=== PATIENT | female | born 1945 | race Caucasian/White ===

== ENCOUNTER → 2018-07-19 | Outpatient (CLI) | payer OTHER, MEDICARE ==
[~2018-07-19] VITALS: Ht 162.6 cm; Wt 54.4 kg
[~2018-07-19] MED LIST: KLOR-CON 1010 MEQ PO; LISINOPRIL-HCT1 EAC1 PO; SIMVASTATIN40 MG PO; TYLENOL PM EX-1 EACH PO; XANAX 0.25 MG0.25 MG PO
--- NOTE | 2018-07-19 16:52 | P ---
[facility] [place] [address] PROCEDURE REPORT Name: ROSEMARIEFRNACIH Gabino Room #: REG [facility]#: [id number] Admission: 07/19/18 Attend Phys: Matt Barker MD Discharge: Date of : 45 Report #: [id number] THIS REPORT FOR: //name// CC: Dillon Barker BRIEF HISTORY: The patient is a 72-year-old woman with intermittent solid food dysphagia. She also has Globus symptoms intermittently. PREOPERATIVE DIAGNOSES: 1. Dysphagia. 2. Globus symptoms. POSTOPERATIVE DIAGNOSES: 1. Moderate diffuse gastritis. 2. Small hiatus hernia. 3. Dysphagia. MEDICATIONS: Deep sedation with propofol per anesthesia. SPECIMEN: Biopsies of gastritis. ESTIMATED BLOOD LOSS: 3 mL. PROCEDURE: EGD with biopsy and Landers dilation. FINDINGS: Prior to propofol sedation, procedure of upper endoscopy and dilation were discussed with the patient as well as potential risks and its complications. She indicates she understands and desires to proceed. DESCRIPTION OF PROCEDURE: With the patient in left lateral decubitus position, the Olympus video endoscope was inserted in cervical esophagus under direct vision without difficulty. Examination of this organ through its entire length revealed normal esophageal mucosa down to the squamocolumnar junction. No strictures or masses were seen. There was no endoscopic evidence of esophagitis. There was no Pritchett mucosa. Intermittently, a small 2 cm sliding-type hiatus hernia was seen. The mucosa in the hernia was unremarkable. Scope was advanced in the stomach, was examined on end view as well as retroflexed views. Examination of the stomach revealed a moderate diffuse gastritis, primarily in the antrum. No ulcers or erosions were seen. Upon retroflexion, no abnormalities were seen. No mass lesions were seen. The pylorus, duodenal bulb and postbulbar duodenal sweep were inspected and noted to be unremarkable. At that point, the scope was slowly withdrawn and careful circumferential views confirmed the above findings. The patient tolerated the procedure well. Biopsies obtained of the gastritis. [address] [address] PROCEDURE REPORT Name: GLORIA HOUSTON Room #: REG [facility]#: [id number] Admission: 07/19/18 Attend Phys: Matt Barker MD Discharge: Date of : 45 Report #: [id number] Due to her symptoms of dysphagia, she was dilated with passage of 50-Welsh Landers dilator, although a definite stricture or ring was not seen. CONDITION OF THE PATIENT UPON DISCHARGE: Following the procedure, she was drowsy and prepared for colonoscopy. INSTRUCTIONS TO THE PATIENT AND FAMILY AT THE TIME OF DISCHARGE: Symptoms may in part be related to reflux, so I do not see esophagitis. We will have her use omeprazole 20 mg daily as needed for her symptoms. If she has further dysphagia and has benefit from dilation today, she may return on an as needed basis for dilation. We will proceed with colonoscopy at this time. <ELECTRONICALLY SIGNED> By: Matt Barker MD 07/19/18 1652 [id number] 1033 Matt Barker MD /nt
--- NOTE | 2018-07-19 16:52 | P ---
[facility] [place] [address] PROCEDURE REPORT Name: HOUSTONGLORIA Room #: REG [facility]#: [id number] Admission: 07/19/18 Attend Phys: Matt Barker MD Discharge: Date of : 45 Report #: [id number] THIS REPORT FOR: //name// CC: Dillon Barker OUTPATIENT COLONOSCOPY REPORT BRIEF HISTORY: The patient is a 72-year-old woman with family history of colon cancer. Father had colon cancer at age 52, paternal aunts had colon cancer in their 80s and a paternal cousin had colon cancer at age 53. The patient herself has had precancerous cervical changes treated in the past. PREOPERATIVE DIAGNOSIS: Family history of colon cancer. POSTOPERATIVE DIAGNOSES: 1. Multiple colon polyps. 2. Moderate sigmoid diverticulosis coli. MEDICATIONS: Deep sedation with propofol per Anesthesia. SPECIMENS: 1. Colon polyp removed at 30 cm, but not able to retrieve. 2. Proximal transverse colon polyp. 3. Cecal polyp. 4. Hepatic flexure polyps x 2. 5. Polyp at 40 cm. ESTIMATED BLOOD LOSS: 3 mL. PROCEDURE: Colonoscopy to cecum and terminal ileum with snare polypectomy and biopsy. FINDINGS: Prior to propofol sedation, procedure of colonoscopy was discussed with the patient as well as potential risks and its complications. She indicates she understands and desires to proceed. DESCRIPTION OF PROCEDURE: With the patient in the left lateral decubitus position, digital examination was completed, which revealed no abnormalities. Subsequently, the Olympus video colonoscope was introduced in the rectum, advanced under direct vision to the cecum. Done with minimal difficulty. The cecum was identified by the ileocecal valve and the appendiceal orifice. I was able to visualize the distal segment of the terminal ileum, which was inspected and noted to be unremarkable. At that point, the scope was slowly withdrawn and careful circumferential views were obtained. Upon slow withdrawal of the scope, [facility] [address] [place] [address] PROCEDURE REPORT Name: GLORIA HOUSTON Room #: REG [facility].#: [id number] Admission: 07/19/18 Attend Phys: Matt Barker MD Discharge: Date of : 45 Report #: [id number] the prep was noted to be generally good. However, there were some areas that required some clean-up and overall a good prep was achieved throughout the colon. In the cecum, a 5 x 5 mm polyp was seen and removed by cold snare polypectomy. At the hepatic flexure, two sessile polyps were seen. They were in the range of 4-5 mm and removed by snare polypectomy and one of them in the site was cleaned up with biopsy forceps. In the proximal transverse colon, a diminutive polyp was seen and removed with biopsy forceps. The scope was further withdrawn and no additional abnormalities were noted until about 40 cm, at which point, a diminutive polyp was seen and removed by biopsy. At 30 cm, a 5 x 5 mm sessile polyp was seen and removed by cold snare polypectomy. Unfortunately, this polyp was lost and we were unable to recover it. It had the appearance of a benign adenoma. In addition, as we withdrew the scope through the colon, she was noted to have moderately severe diverticular disease of the sigmoid colon, without endoscopic evidence of diverticulitis. There were also noted to be a few scattered diverticula in the proximal colon. The scope was withdrawn in the rectum. Upon retroflexion, no abnormalities were seen. The scope was withdrawn. The patient tolerated the procedure well. CONDITION OF THE PATIENT UPON DISCHARGE: Following procedure, the patient drowsy, aroused, conversant and will be discharged home when fully ambulatory. INSTRUCTIONS TO THE PATIENT AND FAMILY AT THE TIME OF DISCHARGE: A total of 6 polyps were identified and removed today. We will follow up on the path. However, these appear to be adenomatous polyps. Given her family history and number of polyps, I suggest return in 3 years for followup colon exam. She will return to the care of Dr. Matt Bacon and return to see me as needed. Last colonoscopy was approximately 7-1/2 years ago. Withdrawal time from the cecum was 12 minutes and 48 seconds. <ELECTRONICALLY SIGNED> By: Matt Barker MD 07/19/18 1652 0904 1039 Matt Barker MD /nt
--- NOTE | 2018-07-22 15:06 | PATH ---
[facility] [address] [place] [address] PATHOLOGY RPT PROCEDURE Name: GLORIA KUMAR Gabino Room #: REG [facility].#: [id number] Admission: 07/19/18 Date of : 45 Discharge: Report #: [id number] Path Case #: [id number] [facility] Accession Number: [id number] . 01 Material submitted: . PART A: GASTRIC BIOPSY R/O H. PYLORI PART B: PROXIMAL TRANSVERSE COLON POLYP PART C: CECAL POLYP PART D: HEPATIC FLEXURE POLYP X 2 PART E: COLON POLYP AT 40 CM . 01 Clinical history: . Pre-OP DX: Family history of colon cancer, dysphagia Post-OP DX: Gastritis, hiatal hernia, colon polyps, diverticulosis . 02 Diagnosis: A. Gastric mucosa, gastric rule out H. pylori, endoscopic biopsy: - Mild reactive gastropathy. - Negative for intestinal metaplasia or atrophy. - Negative for Helicobacter pylori (properly controlled immunohistochemical stain performed). . B. Polyp, proximal transverse colon polyp, endoscopic biopsy: - Tubular adenoma. - Negative for high grade dysplasia. . C. Polyp, cecal polyp, endoscopic biopsy: - Tubular adenoma, inflamed. - Negative for high grade dysplasia. . D. Polyp x 2, hepatic flexure polyp, endoscopic biopsy: - All fragments showing tubular adenoma. - Negative for high grade dysplasia. . E. Polyp, at 40 cm, endoscopic biopsy: - Compatible with a hyperplastic polyp, superficial fragments. - Negative for dysplasia. (IUV/db; 07/22/18) LBQ/07/22/2018 . 02 Electronically signed: . Arely Butts MD, Pathologist NPI- [id number] . 01 Gross description: . A. Received in formalin labeled "Gloria Kumar, gastric biopsy, rule out H. pylori," are 4 segments of hawley soft tissue measuring 1.5 x 0[place]6 [place] [address] PATHOLOGY RPT PROCEDURE Name: GLORIA KUMAR A Room #: REG [facility]#: [id number] Admission: 07/19/18 Date of : 45 Discharge: Report #: [id number] Path Case #: [id number] 0.2 cm in aggregate dimensions and ranging from 0.4 to 0.5 cm in maximum dimension. The specimen is submitted entirely in cassette A1. . B. Received in formalin labeled "Gloria Kumar, proximal transverse colon polyp," are 3 segments of hawley soft tissue measuring 0.6 x 0.5 x 0.2 cm in aggregate dimensions and ranging from 0.2 to 0.3 cm in maximum dimension. The specimen is submitted entirely in cassette B1. . C. Received in formalin labeled "Gloria Kumar, cecal polyp," is a single segment of hawley soft tissue measuring 0.6 cm in maximum dimension. The specimen is entirely submitted in cassette C1. . D. Received in formalin labeled "Gloria Kumar, hepatic flexure polyp x2," are 3 segments of hawley soft tissue measuring 0.9 x 0.8 x 0.3 cm in aggregate dimensions and ranging from 0.3 to 0.5 cm in maximum dimension. The specimen is submitted entirely in cassette D1. . E. Received in formalin labeled "Gloria Kumar, colon polyp at 40 cm," are 3 minute segments of hawley soft tissue measuring 0.2 x 0.2 x 0.1 cm in aggregate dimensions and measuring less than 0.1 cm each in maximum dimension. The specimen is submitted entirely in cassette E1. Due to the minute nature of the specimen, it may not survive processing. (TSD; 07/19/2018) TOB/TOB . 02 Pathologist provided ICD-10: K31.9, D12.3, D12.0, K63.5 . 02 CPT . 126351, 260933, 827918, 062363, 740228, [id number] Specimen Comment: A courtesy copy of this report has been sent to Specimen Comment: [phone], , . Specimen Comment: Report sent to ,DR ROSE / DR PEOPLES Performed at: [address], [place], [place] [id number] MD Ayush Lovell MD Phone: [phone] Performed at: [address] [id number] MD Arely Butts MD Phone: [phone]
== END | disposition home or self-care (01) ==
LOC: GI 07:15
DX: Z12.11 Encounter for screening for malignant neoplasm of colon (principal); Z80.0 Family history of malignant neoplasm of digestive organs; D12.0 Benign neoplasm of cecum; D12.3 Benign neoplasm of transverse colon; K63.5 Polyp of colon; K57.30 Diverticulosis of large intestine without perforation or abscess without bleeding; K31.9 Disease of stomach and duodenum, unspecified; K29.70 Gastritis, unspecified, without bleeding; K44.9 Diaphragmatic hernia without obstruction or gangrene; I10 Essential (primary) hypertension; E78.00 Pure hypercholesterolemia, unspecified; Z79.899 Other long term (current) drug therapy; Z87.891 Personal history of nicotine dependence; Z98.890 Other specified postprocedural states
CPT/HCPCS: 62110; 62900